=== PATIENT | male | born 1950 | race Caucasian/White ===

== ENCOUNTER 2017-07-07 00:57 | Inpatient (IN) ==
[2017-07-07] MEDS ORDERED: DUONEB (A & A) ONE ×2 (01:04→04:04)
[2017-07-07] MEDS ORDERED: DUONEB (A & A) INH ONE (01:10)
[2017-07-07 01:26] LABS: BE 3.4 mmoll (-3.0-3.0); BLOOD TYPE ARTERIAL; DRAW SITE R BRACHIAL; METHB 1.3 % (0.0-1.5); O2(CT) 19.6 mL/dL (15.0-23.0); PO2(98.6) 71 mmHg (60-100); SAMPLE BLOOD; SAO2 96.3 % (95.0-100.0); pH(98.6) 7.31 (7.35-7.45)
[2017-07-07] MEDS ORDERED: SOLU-MEDROL IV ONE (01:27)
--- NOTE | 2017-07-07 01:30 | EKG Report ---
Test Performed on : 07/07/2017 01:16:00 AM Test Reason : CHEST PAIN Blood Pressure : / mmHG Vent. Rate : 100 BPM Atrial Rate : 100 BPM P-R Int : 134 ms QRS Dur : 096 ms QT Int : 346 ms P-R-T Axes : 080 033 058 degrees QTc Int : 446 ms Normal sinus rhythm. Cannot rule out Inferior infarct , age undetermined Abnormal ECG When compared with ECG of 23-APR-2017 09:37, Minimal criteria for Inferior infarct are now present Nonspecific T wave abnormality now evident in Inferior leads Unconfirmed Result
[2017-07-07 01:31] LABS: ALLEN TEST NO; MODALITY CANNULA; PCO2(98.6) 63 mmHg (35-45)
[2017-07-07 01:31] LABS: MANUAL DIFF NEEDED? NO
--- NOTE | 2017-07-07 01:33 | PROVIDER DOCUMENTATION ---
HPI-Respiratory General - General Chief Complaint: Shortness of Breath Stated Complaint: SOB Time Seen by Provider: 07/07/17 01:27 Source: patient Allergies/Adverse Reactions: Patient Allergies Allergy/AdvReac Type Severity Reaction Status Date / Time levofloxacin [From Levaquin] Allergy RASH Verified 02/22/17 20:36 Home Medications: Home Medication List Medication Instructions Recorded Confirmed Last Taken Type Albuterol Sulfate Inhaler 2 puff INH TF7AION 10/24/13 07/07/17 04/23/17 07:00 History [Ventolin Hfa] Albuterol [Albuterol Neb] 2.5 mg INH Q4H PRN PRN 10/24/13 07/07/17 04/23/17 05: 00 History Hydrocodone/APAP 10 mg/325 mg 7.5 mg PO TID 04/07/15 07/07/17 04/23/17 06:00 History [[place]-10] Pregabalin [Lyrica] 1 cap PO AC + HS 02/22/17 07/07/17 04/22/17 07:00 History Clonazepam [Clonazepam] 1 tab PO DIRECTED 04/23/17 07/07/17 04/22/17 History - History of Present Illness-Resp Nature of Presenting Problem: wheezing sob x 2 days no fever or chills no blood has productive clear cough has edema in legs 2 days Quality of Pain: reports: none Severity in ED: reports: mild Onset/Duration: reports: 2 days ago Timing: reports: still present Context: denies: recent URI Cough Quality/Degree: reports: productive cough Episode Frequency: frequent episodes Current Respiratory Medication Therapy: Initiated A/A nebulizer, Initiated prednisone Modifying Factors: improves with: albuterol inhaler, oxygen, sitting upright. worse with: exertion, coughing, lying down Associated Symptoms: reports: cough, nasal congestion, shortness of breath, short of breath. denies: fever/chills, flu-like symptoms, heart racing Similar Symptoms Previously?: Yes Recently seen or treated by another doctor?: No Review of Systems - Adult - REVIEW OF SYSTEMS - ADULT Constitutional: reports: weight gain. denies: chills, fever, night sweats Eyes: reports: no symptoms reported Ears, Nose, Mouth & Throat: reports: no symptoms reported Cardiovascular: reports: no symptoms reported, edema, orthopnea, PND Respiratory: reports: cough, shortness of breath, wheezing Gastrointestinal: reports: no symptoms reported Genitourinary: reports: no symptoms reported Musculoskeletal: reports: no symptoms reported Integumentary: reports: no symptoms reported Neurological: reports: no symptoms reported Psychiatric: reports: no symptoms reported Endocrine: reports: no symptoms reported Hematologic/Lymphatic: reports: blood clots, easy bruising. denies: low blood count, lymphedema Allergic/Immunologic: reports: no symptoms reported. denies: asthma Past History - Adult - PAST MEDICAL HISTORY-ADULT Review of Records: reports: Nursing Assessment Review, Medications Reviewed Major Childhood Illnesses: reports: denies history Cardiovascular: reports: CHF, palpitations Respiratory: reports: COPD Gastrointestinal: reports: denies history Obstetrical/Gynecological: reports: denies history Genitourinary: reports: denies history. denies: ESRD Musculoskeletal: reports: denies history Neurological: reports: denies history Psychiatric: reports: denies history Endocrine/Immune: reports: denies history Other Conditions: reports: denies history - PRIOR SURGERIES/PROCEDURES Surgical/Procedure History: reports: cholecystectomy - IMMUNIZATION STATUS Childhood Immunizations: See Nurse Assessment Flu Vaccine: See Nurse Assessment - FAMILY HISTORY Family History: reviewed, not pertinent - SOCIAL HISTORY Smoking: quit greater than 1 year Substance Use: none/never Living Situation: family Physical Exam-General - PHYSICAL EXAM-ADULT Initial Vital Signs Reviewed: Yes - CONSTITUTIONAL General Appearance: alert - RESPIRATORY Respiratory: accessory muscle use, wheezing, prolonged expiration, increased rate - CARDIOVASCULAR Cardiovascular: tachycardia - GASTROINTESTINAL (ABDOMEN) Abdominal Exam: non tender, soft, hernia - SKIN Integumentary: normal color, normal turgor, warm/dry - PSYCHIATRIC Psych/Mental Status: normal mood/affect, normal thought content, normal thought process, oriented x 3 Progress - PLAN OF CARE/RESULTS Progress/Plan/Lab Results: Vital Signs - 8 hr 07/07/17 01:00 07/07/17 01:10 07/07/17 02:20 Temperature 98.5 F 98.2 F Pulse Rate 99 H 100 H 93 H Respiratory Rate 30 H 25 H 18 Blood Pressure 175/97 157/105 O2 Sat by Pulse Oximetry 96 99 98 Laboratory Results - last 24 hr 07/07/17 07/07/17 07/07/17 01:00 01:25 01:25 WBC RBC Hgb Hct MCV MCH MCHC RDW Std Deviation Plt Count MPV Immature Gran % (Auto) Neut % (Auto) Lymph % (Auto) Martin % (Auto) Eos % (Auto) Baso % (Auto) Immature Gran # (Auto) Neut # (Auto) Lymph # (Auto) Martin # (Auto) Eos # (Auto) Baso # (Auto) PT INR APTT (Factor Assay) D-Dimer Specimen Type ARTERIAL Sample Site R BRACHIAL pH 7.31 L pCO2 63 H* pO2 71 HCO3 27.4 H Base Excess 3.4 H Oxyhemoglobin 92.9 L ABG O2 Sat (Calculated) 19.6 ABG O2 Saturation 96.3 ABG Carboxyhemoglobin 2.20 ABG Methemoglobin 1.3 Michael Test NO A-a O2 Difference 78.0 Total Hemoglobin 15.0 Lactate 0.60 Liter Flow 3.0 Blood Gas Modality CANNULA FiO2 % 32.0 Sodium 138 Potassium 4.1 Chloride 98 Carbon Dioxide 30 Anion Gap 10 BUN 9 Creatinine 0.8 Estimated GFR/1.73 m2 > 60 BUN/Creatinine Ratio 11 Glucose 222 H Calculated Osmolality 281 Calcium 9.0 Magnesium 2.2 Total Bilirubin 0.50 AST 13 ALT 15 Alkaline Phosphatase 82 Creatine Kinase 223 H Creatine Kinase Index 4.0 H CK-MB (CK-2) 9.01 H Troponin T < 0.010 Eyw-I-Bmhmkbwhrjm Pept Total Protein 7.3 Albumin 4.1 Globulin 3.0 Albumin/Globulin Ratio 1.0 07/07/17 07/07/17 07/07/17 01:25 01:25 01:25 WBC 12.63 H RBC 4.72 Hgb 14.5 Hct 45.5 MCV 96.4 MCH 30.7 MCHC 31.9 L RDW Std Deviation 12.2 Plt Count 275 MPV 10.9 H Immature Gran % (Auto) 0.3 Neut % (Auto) 63.0 Lymph % (Auto) 15.8 L Martin % (Auto) 9.9 H Eos % (Auto) 10.5 H Baso % (Auto) 0.5 Immature Gran # (Auto) 0.04 Neut # (Auto) 7.97 H Lymph # (Auto) 1.99 Martin # (Auto) 1.25 H Eos # (Auto) 1.32 H Baso # (Auto) 0.06 PT 13.1 INR 0.92 APTT (Factor Assay) 26.4 D-Dimer 0.47 Specimen Type Sample Site pH pCO2 pO2 HCO3 Base Excess Oxyhemoglobin ABG O2 Sat (Calculated) ABG O2 Saturation ABG Carboxyhemoglobin ABG Methemoglobin Michael Test A-a O2 Difference Total Hemoglobin Lactate Liter Flow Blood Gas Modality FiO2 % Sodium Potassium Chloride Carbon Dioxide Anion Gap BUN Creatinine Estimated GFR/1.73 m2 BUN/Creatinine Ratio Glucose Calculated Osmolality Calcium Magnesium Total Bilirubin AST ALT Alkaline Phosphatase Creatine Kinase Creatine Kinase Index CK-MB (CK-2) Troponin T Xlb-B-Gidfqnzaxnl Pept 232 H Total Protein Albumin Globulin Albumin/Globulin Ratio Orders Category Date Time Status Cardiac Monitoring DIRECTED Care 07/07/17 01:07 Active Oxygen Therapy- ED Nursing DIRECTED Care 07/07/17 01:07 Active Saline Loc NOW Care 07/07/17 01:07 Active CHEST-2 VIEWS [RAD] Stat Exams 07/07/17 01:11 Taken ABG [RESP] Routine Lab 07/07/17 01:00 Completed CBC WITH ELECTRONIC DIFF [HEME] Stat Lab 07/07/17 01:25 Completed CK PROFILE [SP CHEM] Stat Lab 07/07/17 01:25 Results COMPREHENSIVE METABOLIC PANEL [CHEM] Stat Lab 07/07/17 01:25 Results D-DIMER PL [COAG] Stat Lab 07/07/17 01:25 Completed MAGNESIUM [CHEM] Stat Lab 07/07/17 01:25 Results PRO B-NATRIURETIC PEPTIDE Stat Lab 07/07/17 01:[address]IME WITH INR PL [COAG] Stat Lab 07/07/17 01:[address] [COAG] Stat Lab 07/07/17 01:25 Completed TROPONIN T Stat Lab 07/07/17 01:25 Completed Albuterol 2.5MG/Ipratrop 0.5MG [Duoneb (A & A)] Med 07/07/17 01:04 Discontinued 3 ml .ROUTE .STK-MED ONE Albuterol 2.5MG/Ipratrop 0.5MG [Duoneb (A & A)] Med 07/07/17 01:10 Discontinued 3 ml INH NOW ONE Methylprednisolone Sod Succ [Solu-Medrol] Med 07/07/17 01:27 Discontinued 125 mg IV NOW ONE breathing treatment [Aerosol Treatments] Stat Oth 07/07/17 01:10 Active EKG [EKG] Stat Ther 07/07/17 01:07 Draft Result Diagrams: 07/07/17 01:25 07/07/17 01:25 - EKG 1 Time of EKG reading by physician:: 01:16 EKG Read and Signed by:: Antonio Hair EKG Interpretation (*Must complete 3 of following elements*): Abnormal Rate: 100 Rhythm: NSR Comments: cannot r/o inferior infarct, age undetermined - XRAY 1 XRAY Study: Chest Impression: Abnormal Comparison with other Films: no changes - CONSULTS/PCP/HOSPITALIST Notification #1 *Consult/PCP/Hospitalist*: Dr. Weber Time Discussed: 02:33 Consult Disposition: Admit Departure - Departure Date of Disposition Decision: 07/07/17 Time of Disposition Decision: 02:33 DIAGNOSIS: COPD exacerbation Disposition: ADMITTED INPATIENT 09 Certified Medical Emergency: Emergent Condition: Stable Referrals and Follow-Ups: Tony Mckinney MD [Primary Care Provider] - - Critical Care Note This patient required my direct & personal management of CC.: No Attestation - Physician/ REEMA Attestation Patient care was provided by Advanced Practice Provider:: No The physician spent face to face time with patient:: Yes Advanced Practice Provider documentation review:: Supervising physician onsite and consulted in the evaluation and care of this patient. The physician did have a face to face encounter with the patient.
[2017-07-07 01:37] LABS: BASO% 0.5 % (0.0-0.8); EOS# 1.32 X1000 (0.0-0.7); EOS% 10.5 % (0.0-10.0); HEMATOCRIT 45.5 % (42.0-52.0); HEMOGLOBIN 14.5 g/dL (14.0-18.0); IMM GRAN# 0.04 X1000 (0.0-0.04); IMM GRAN% 0.3 % (0.0-0.5); LYMPH# 1.99 X1000 (1.2-3.4); LYMPH% 15.8 % (20.5-51.1); MCH 30.7 PG (27-31); MCHC 31.9 g/dL (33-37); MCV 96.4 FL (81-99); MONO# 1.25 X1000 (0.11-0.59); MONO% 9.9 % (1.7-9.3); MPV 10.9 FL (7.4-10.4); PLT 275 X1000 (130-400); RBC 4.72 XMIL (4.7-6.1)
[2017-07-07 01:55] LABS: AGAP 10; ALBUMIN 4.1 g/dL (3.5-5.0); ALKALINE PHOSPHATASE 82 U/L (32-122); BUN 9 mg/dL (8-22); CHLORIDE 98 mmol/L (98-107); COSMO 281; GOT 13 U/L (10-34); GPT 15 U/L (10-44); MAGNESIUM 2.2 mg/dL (1.5-2.7); POTASSIUM 4.1 mmol/L (3.5-5.1); SODIUM 138 mmol/L (136-145); TCO2 30 mmol/L (25-35); TOTAL PROTEIN 7.3 g/dL (6.3-8.3)
[2017-07-07 01:59] LABS: INR 0.92 (0.86-1.15); PROTIME 13.1 Seconds (12.1-15.5); PTT PL 26.4 Seconds (22.6-43.9)
[2017-07-07 02:01] LABS: CK PROFILE 223 U/L (24-204)
[2017-07-07 02:21] LABS: CK-MB 9.01 ng/mL (0.0-5.0)
[2017-07-07] MEDS ORDERED: LASIX PO ONE (03:03)
[2017-07-07] MEDS ORDERED: DOXYCYCLINE 100 MG in NS 250 ML IV SCH (04:00)
[2017-07-07] MEDS: ROCEPHIN 1 GM in NS 50 ML IV SCH (04:00)
[2017-07-07] MEDS: PROTONIX PO SCH (06:15)
[2017-07-07] MEDS: LOVENOX SUBQ SCH (06:15)
--- NOTE | 2017-07-07 06:16 | Diag Imaging Result Doc PS360 ---
EXAM: CHEST-2 VIEWS HISTORY: shortness of breath TECHNIQUE: Two views COMPARISON: 04/23/2017 FINDINGS: The lungs are hyper expanded. The heart is not enlarged. The vessels are not distended. There are questionable infiltrates laterally in the mid left lung and medially in the right base. No pleural effusions. There are several old rib fractures. IMPRESSION: 1.Emphysema 2.I believe there are small infiltrates. Electronically signed by David Redding 07/07/2017 6:13 AM
[2017-07-07] MEDS: DUONEB (A & A) INH PRN ×4 (07:18→18:36)
[2017-07-07] MEDS: SOLU-MEDROL IV SCH ×3 (09:32→22:52)
[2017-07-07] MEDS ORDERED: LOVENOX SUBQ SCH (16:30)
--- NOTE | 2017-07-07 16:48 | HISTORY AND PHYSICAL ---
HISTORY OF PRESENT ILLNESS: Patient came in with shortness of breath and cough. PHYSICAL EXAM: CARDIOVASCULAR: Regular rate and rhythm. PULMONARY: Diffuse rhonchi and wheezing. PROBLEM LIST: He has chronic obstructive pulmonary disease exacerbation with possibly some pneumonia. We will continue empiric antibiotics, steroids, breathing treatments and follow. I am going to repeat his chest x-ray tomorrow. DVT, GI prophylaxis. At this point it is not is not clear he has heart failure but we will monitor that. His BNP is moderately elevated. He does have hyperglycemia though and we will evaluate for diabetes. cc: Angel Guardado MD
[2017-07-07] MEDS: DOXYCYCLINE PO SCH (17:03)
[2017-07-07] MEDS ORDERED: SOLU-MEDROL IV SCH (18:00)
--- NOTE | 2017-07-07 18:19 | HISTORY AND PHYSICAL ---
CHIEF COMPLAINT: Increasing dyspnea over 1 week. HISTORY OF PRESENT ILLNESS: This is a 66-year-old gentleman with a history of COPD, who presented to the emergency room complaining of progressive dyspnea on exertion over the prior week. He denied any fever or chill with a clear cough. He did say that he has had some lower extremity edema during this time. He did deny any fever or chills. He was found to have a white count of 12 with a pCO2 of 63 and a PO2 of 71 on blood gases. Chest x-ray did show some small infiltrates in the mid left lung as well as the right base. Blood cultures were done for which he was given Rocephin and admitted for further evaluation and treatment. PAST MEDICAL HISTORY: CHF, COPD, gastroesophageal reflux disease, obstructive sleep apnea. PAST SURGICAL HISTORY: Cholecystectomy. SOCIAL HISTORY: He stopped smoking a year ago. He denies alcohol or illicit drug use. FAMILY HISTORY: Sister had lung cancer. Mother had heart failure. ALLERGIES: No known drug allergies. HOME MEDICATIONS: Klonopin 1 tablet as directed, albuterol nebulizer q. 4 hours p.r.n., Lyrica as directed. REVIEW OF SYSTEMS: A 14 point review of systems is discussed with patient with pertinent positives stated in the HPI. He denied chest pain, palpitations, dizziness, orthopnea, PND, any nausea, vomiting, diarrhea, constipation, any black or bloody vomitus, black or bloody stools, hematuria, dysuria, frequency or urgency. PHYSICAL EXAMINATION: GENERAL: This is a 66-year-old male who is sitting up in the bed, in no distress. VITAL SIGNS: Blood pressure 156/90 with a heart rate of 100, respirations are 18, temperature is 97.9 degrees oral with O2 saturations of 95-96% on 3 L nasal cannula. HEENT: Head is normocephalic, atraumatic. Pupils equal, round, react to light. EOMs are intact. Sclerae anicteric. Mucous membranes are moist. NECK: Supple. Trachea midline. CARDIOVASCULAR: Regular rate and rhythm S1, S2 appreciated. PULMONARY: Scattered wheezes throughout with prolonged expiration. Chest rises and falls symmetrically with respiration with no increased work of breathing noted.Gastrointestinal: Abdomen is soft, nontender, nondistended with bowel sounds in all 4 quadrants. Back: No CVAT. No spine tenderness. Musculoskeletal: Good range of motion of joints. Extremities: No clubbing, cyanosis, or edema. Pulses are palpable x 4. Calves are nontender. Skin: Warm and dry with no rashes or lesions noted. Neurologic: He is alert and oriented x 3. Cranial nerves 2- 12 grossly intact. DIAGNOSTICS: WBC is 12.6 with a hemoglobin of 14.5, hematocrit 45.5, and platelets of 275,000. D- dimer 0.47. Sodium is 138, potassium 4.1, BUN 9, creatinine 0.8, glucose of 222. CPK is 223, with CK-MB 9. Troponin less than 0.010. Chest x-ray reveals bilateral infiltrates. ASSESSMENT AND PLAN: 1. Chronic obstructive pulmonary disease with acute exacerbation. 2. Multilobar pneumonia. 3. Leukocytosis. 4. Hypercapnic respiratory failure. 5. Hypertension. 6. Reported heart failure. 7. Obstructive sleep apnea. PLAN: He will be admitted to the hospital. We will continue with antibiotic coverage of Rocephin and doxycycline. Steroids to taper. We will identify home medications and continue as appropriate. We will give DuoNeb q. 4 hours and q. 2 hours p.r.n. Fingerstick blood sugars with pattern blood glucose and sliding scale insulin. We will repeat a chest x-ray in the morning. We will trend labs daily. We will use Lovenox for DVT prophylaxis. Incentive spirometer. Further treatments pending hospital course. Dictated by YUNIOR Dixon for Angel Guardado MD cc: YUNIOR Dixon MD
[2017-07-07] MEDS: HUMULIN R (PARKWAY) SUBQ SCH ×2 (18:25→20:58)
[2017-07-07] MEDS: PULMICORT INH SCH (19:33)
[2017-07-07] MEDS: DUONEB (A & A) INH SCH ×2 (19:33→23:44)
[2017-07-08] MEDS: DUONEB (A & A) INH SCH ×6 (03:48→22:57)
[2017-07-08] MEDS: SOLU-MEDROL IV SCH ×3 (04:07→20:10)
[2017-07-08] MEDS: ROCEPHIN 1 GM in NS 50 ML IV SCH (04:07)
[2017-07-08] MEDS: LOVENOX SUBQ SCH (06:05)
[2017-07-08] MEDS: DOXYCYCLINE PO SCH ×2 (06:05→17:53)
[2017-07-08] MEDS: PROTONIX PO SCH (06:05)
[2017-07-08] MEDS: HUMULIN R (PARKWAY) SUBQ SCH ×2 (06:05→11:57)
[2017-07-08 06:24] LABS: HEMATOCRIT 44.2 % (42.0-52.0); HEMOGLOBIN 14.5 g/dL (14.0-18.0); MCHC 32.8 g/dL (33-37); MCV 94.4 FL (81-99); MPV 11.5 FL (7.4-10.4); RBC 4.68 XMIL (4.7-6.1)
[2017-07-08 07:08] LABS: AGAP 14; BUN 20 mg/dL (8-22); CALCIUM 9.7 mg/dL (8.8-10.2); CHLORIDE 94 mmol/L (98-107); COSMO 285; MAGNESIUM 2.2 mg/dL (1.5-2.7); POTASSIUM 4.1 mmol/L (3.5-5.1); SODIUM 136 mmol/L (136-145); TCO2 28 mmol/L (25-35)
--- NOTE | 2017-07-08 07:33 | Diag Imaging Result Doc PS360 ---
EXAM: CHEST-PORTABLE HISTORY: dyspnea TECHNIQUE: Portable AP COMPARISON: 07/07/2017 FINDINGS: The lungs are well expanded. The heart is not enlarged. The vessels are not distended. No consolidation. No pleural effusions identified. There are old rib fractures. IMPRESSION: No acute abnormality. Electronically signed by David Redding 07/08/2017 7:30 AM
[2017-07-08] MEDS ORDERED: CARDIZEM IV ONE (08:12)
--- NOTE | 2017-07-08 08:24 | EKG Report ---
Test Performed on : 07/08/2017 08:00:11 AM Test Reason : Tachy Blood Pressure : / mmHG Vent. Rate : 165 BPM Atrial Rate : 057 BPM P-R Int : 000 ms QRS Dur : 088 ms QT Int : 288 ms P-R-T Axes : 000 009 187 degrees QTc Int : [address] depression, consider subendocardial injury Nonspecific T wave abnormality Abnormal ECG When compared with ECG of 07-JUL-2017 01:16, Vent. rate has increased BY 65 BPM Minimal criteria for Inferior infarct are no longer present ST more depressed in Anterolateral leads Nonspecific T wave abnormality, improved in Inferior leads Inverted T waves have replaced nonspecific T wave abnormality in Lateral leads Unconfirmed Result
[2017-07-08] MEDS: PULMICORT INH SCH ×2 (09:18→20:25)
[2017-07-08] MEDS: KLONOPIN PO SCH ×2 (09:37→20:10)
[2017-07-08 09:48] LABS: HEMOGLOBIN A1C 8.6 % (4.8-6.0)
[2017-07-08] MEDS: HUMULIN R DOSE (PARKWAY) SUBQ SCH ×2 (16:00→20:11)
--- NOTE | 2017-07-08 20:53 | PROGRESS NOTE ---
DATE: 07/08/2017 SUBJECTIVE: Patient sitting in the bed. States that he is feeling better. He is having some shortness of breath, cough and congestion, but denies any true chest pains or palpitations. Denies any GI or issues. OBJECTIVE: Vital Signs: Reviewed and stable. Temperature 97.9 degrees, pulse 100, respiratory 130/74. General: Patient is awake, alert. He is in moderate respiratory distress, but is improved from yesterday's admission. HEENT: Normocephalic, atraumatic. NEIL. Neck: Supple. No JVD. CARDIOVASCULAR: Regular rate and rhythm. Chest: Decreased breath sounds, but equal bilaterally. Mild accessory muscle usage bilaterally. Positive moderate wheezing bilaterally. Abdomen: Soft, nondistended. Extremities: Moves all extremities. ASSESSMENT: 1. Chronic obstructive pulmonary disease with exacerbation. 2. Chronic hypoxemia. 3. Chronic tobacco abuse. Notes he stopped smoking greater than a year ago. 4. Hypertension. 5. Hypercapnic respiratory failure. 6. Leukocytosis. 7. Multilobar pneumonia. PLAN: We will continue Rocephin and doxycycline. We will change doxycycline to p.o. We will attempt to decrease his Solu-Medrol from 80 q. 6 to 60 q.8. We will follow. Further orders as needed. cc: Wade Weber MD
[2017-07-09] MEDS: SOLU-MEDROL IV SCH ×2 (03:55→16:36)
[2017-07-09] MEDS: ROCEPHIN 1 GM in NS 50 ML IV SCH (03:56)
[2017-07-09] MEDS: DUONEB (A & A) INH SCH ×6 (04:15→22:33)
[2017-07-09] MEDS: DOXYCYCLINE PO SCH ×2 (06:12→17:07)
[2017-07-09] MEDS: PROTONIX PO SCH (06:12)
[2017-07-09] MEDS: LOVENOX SUBQ SCH (06:12)
[2017-07-09] MEDS: HUMULIN R DOSE (PARKWAY) SUBQ SCH ×4 (06:18→20:42)
[2017-07-09] MEDS: PULMICORT INH SCH ×2 (07:46→18:44)
[2017-07-09] MEDS: KLONOPIN PO SCH ×2 (08:15→20:42)
[2017-07-09] MEDS: COREG PO SCH ×2 (09:18→20:42)
[2017-07-09] MEDS ORDERED: SOLU-MEDROL IV SCH (12:00)
[2017-07-09] MEDS ORDERED: PRINIVIL PO SCH (13:30)
[2017-07-09] MEDS: DUONEB (A & A) INH PRN (13:53)
[2017-07-09] MEDS: NORCO-7.5 PO PRN (17:07)
[2017-07-09] MEDS ORDERED: APRESOLINE IV PRN (20:14)
[2017-07-09] MEDS: LYRICA PO SCH (20:42)
[2017-07-10] MEDS: DUONEB (A & A) INH SCH ×6 (02:57→22:42)
--- NOTE | 2017-07-10 05:46 | PROGRESS NOTE ---
DATE: 07/09/2017 SUBJECTIVE: Patient denies any cough, congestion. Denies any chest pain. States that occasionally when he gets overly anxious he will just start vomiting . PHYSICAL EXAMINATION: Vital signs: Temp 97.1, pulse 108, respiratory 20, BP 130/74. General: Patient is awake, alert, currently in no respiratory distress. HEENT: Normocephalic, atraumatic. NEIL. Neck: Supple. Cardiovascular: Regular rate. Chest: Clear. Abdomen: Soft. Extremities: Moves all extremities. ASSESSMENT: 1. Supraventricular tachycardia. He has had no further episodes today. We will continue to watch him through the afternoon. If has no further episodes then we can discharge him back to the floor. 2. Hypertension. We will add an STEPHIE inhibitor as he is already on Coreg 6.. 3. cc: Wade Weber MD
--- NOTE | 2017-07-10 05:57 | HISTORY AND PHYSICAL ---
ADDENDUM REPORT: ASSESSMENT: 1. Chronic obstructive pulmonary disease exacerbation. 2. Supraventricular tachycardia. PLAN: We will continue Coreg. We will add STEPHIE inhibitor for hypertension. Continue breathing treatments. We will continue to watch in the ICU most of the day today. Hopefully can be transitioned out to the floor tonight if a bed is available. cc: Wade Weber MD
[2017-07-10] MEDS: SOLU-MEDROL IV SCH ×2 (06:09→17:14)
[2017-07-10] MEDS: PROTONIX PO SCH (06:09)
[2017-07-10] MEDS: ROCEPHIN 1 GM in NS 50 ML IV SCH (06:09)
[2017-07-10] MEDS: DOXYCYCLINE PO SCH ×2 (06:09→17:14)
[2017-07-10] MEDS: LOVENOX SUBQ SCH (06:09)
[2017-07-10] MEDS: HUMULIN R DOSE (PARKWAY) SUBQ SCH (06:10)
[2017-07-10] MEDS: NORCO-7.5 PO PRN ×2 (06:12→20:40)
[2017-07-10] MEDS: PULMICORT INH SCH ×2 (07:55→19:14)
[2017-07-10] MEDS: LYRICA PO SCH ×2 (08:47→20:37)
[2017-07-10] MEDS: COREG PO SCH ×2 (08:47→20:36)
[2017-07-10] MEDS: KLONOPIN PO SCH ×2 (08:47→20:36)
[2017-07-10] MEDS: PRINIVIL PO SCH (08:47)
[2017-07-10] MEDS: HUMULIN R (PARKWAY) SUBQ SCH ×3 (11:39→20:37)
--- NOTE | 2017-07-10 22:20 | PROGRESS NOTE ---
DATE: 07/10/2017 SUBJECTIVE: Patient notes he is feeling much better. States he had episode of cough and congestion yesterday felt short of breath, could not catch his breath in fact his O2 saturation dropped and his blood pressure went up, that is the reason he did not leave the ICU. Denies any GI or issues currently. OBJECTIVE: Vital Signs: Reviewed. Temperature 97 degrees, pulse 100, blood pressure 130/70. General: Patient is awake, alert. He is currently in no respiratory distress, he is pleasant to talk with. Neck: Supple. CV: Regular rate. Chest: Much more clear. Still wheezing but improved. Good air movement. Abdomen: Soft, nondistended. Extremities: Moves all extremities. Neuro: No changes. ASSESSMENT: 1. Chronic obstructive pulmonary disease with marked exacerbation. 2. Acute hypoxemia yesterday likely secondary to mucous plugging. 3. Multilobar pneumonia. 4. Leukocytosis. 5. Hypercapnic respiratory failure. 6. Hypertension. PLAN: Will continue to follow, his blood pressures are much better with Coreg and the additional increased dose of lisinopril, will continue antibiotics, continue wean his steroids. Will move him out to the floor, continue sliding scale insulin. Further orders as needed. cc: Wade Weber MD
[2017-07-11] MEDS: DUONEB (A & A) INH SCH ×3 (02:52→11:14)
[2017-07-11] MEDS: LOVENOX SUBQ SCH (05:59)
[2017-07-11] MEDS: DOXYCYCLINE PO SCH (05:59)
[2017-07-11] MEDS: SOLU-MEDROL IV SCH (05:59)
[2017-07-11] MEDS: ROCEPHIN 1 GM in NS 50 ML IV SCH (05:59)
[2017-07-11] MEDS: PROTONIX PO SCH (06:05)
[2017-07-11] MEDS: HUMULIN R (PARKWAY) SUBQ SCH ×2 (06:28→11:28)
[2017-07-11] MEDS: PULMICORT INH SCH (08:04)
[2017-07-11] MEDS: LYRICA PO SCH (09:16)
[2017-07-11] MEDS: COREG PO SCH (09:16)
[2017-07-11] MEDS: PRINIVIL PO SCH (09:16)
[2017-07-11] MEDS: KLONOPIN PO SCH (09:16)
[2017-07-11] MEDS: NORCO-7.5 PO PRN (09:21)
[2017-07-11] MEDS ORDERED: FLUZONE QUAD 2017-2018 SYRINGE IM ONE (09:36)
[2017-07-11] MEDS ORDERED: PRINIVIL PO SCH (10:46)
[2017-07-11 11:59] VITALS: BP 160/93
--- NOTE | 2017-07-12 04:35 | DISCHARGE SUMMARY ---
ADMISSION DATE: 07/07/2017 DISCHARGE DATE: 07/11/2017 DISCHARGE DIAGNOSES: 1. Supraventricular tachycardia secondary to chronic obstructive pulmonary disease exacerbation, resolved. 2. Hypertension, improved. 3. Chronic obstructive pulmonary disease with acute exacerbation, improved. 4. Multilobar pneumonia. 5. Leukocytosis, resolved. 6. Hypercapnic respiratory failure, resolved. 7. Obstructive sleep apnea. CONSULTATIONS: None. PROCEDURES: None. BRIEF HOSPITAL COURSE: The patient is a 66-year-old male who was admitted as noted on the HPI and treated in usual fashion. Placed in the hospital on IV fluids, antibiotics, breathing treatments, and steroids. He was improving and then had an episode of supraventricular tachycardia. Heart rate jumped in the 130s to 140s. He was placed on Cardizem IV x1. Moved to the ICU. Thankfully, this resolved quickly. He was transitioned over to Coreg 6.25 twice a day. He was noted to have elevated blood pressures in the 160s to 170s range. He was not on any blood pressure medications at home. He was started on lisinopril and slowly increased to 40 mg once a day. On discharge, he has been transition down to Solu-Medrol 40 q.12, which he tolerated very well. He has been changed to Omnicef and doxycycline both p.o. and therefore he will be discharged home. DISPOSITION: Patient will be discharged home. He will continue to avoid cigarette smoke personally, as well as anyone else that smokes. He will avoid any type of current strong odors. He will followup with Dr. Tony Mckinney in 1-2 weeks. DISCHARGE MEDICATIONS: Doxycycline 100 mg twice a day for five days, Omnicef 300 mg twice a day for five days, Medrol Dosepak, next Coreg 6.25 b.i.d., lisinopril 40 mg once a day,nebulized albuterol q. 4 hours p.r.n. TIME SPENT: Thirty-five minutes was spent in total care. cc: Wade Weber MD
== END 2017-07-11 13:05 | disposition home or self-care (01) ==
LOC: P.ED 00:57 → P.MEDSURG 00:57 → SUATTDRO 03:10 → OBSVTOIN 03:10 → P.MEDSURG 03:26 → P.ICU 07-08 08:58 → P.MEDSURG 07-10 10:32
PROVIDERS: ATTEND Family Medicine

== ENCOUNTER 2019-01-11 14:51 | Inpatient (IN) ==
[2019-01-11 15:18] LABS: BE 6.1 mmoll (-3.0-3.0); BLOOD TYPE ARTERIAL; HCO3-(ACT) 29.6 mmoll (20.0-26.0); O2(CT) 17.9 mL/dL (15.0-23.0); O2HB 94.2 % (95.0-99.0); PCO2(98.6) 46 mmHg (35-45); PO2(98.6) 72 mmHg (60-100); SAMPLE BLOOD; SAO2 97.2 % (95.0-100.0); THB 13.5 g/dL (11.5-17.4); pH(98.6) 7.44 (7.35-7.45)
[2019-01-11 15:21] LABS: ALLEN TEST YES; MODALITY CANNULA
[2019-01-11] MEDS ORDERED: DUONEB (A & A) INH ONE (15:58)
[2019-01-11] MEDS ORDERED: SOLU-MEDROL IV ONE (15:59)
--- NOTE | 2019-01-11 16:03 | Diag Imaging Result Doc PS360 ---
EXAM: CHEST-2 VIEWS HISTORY: copd sob TECHNIQUE: Chest two views COMPARISON: 11/01/2018 FINDINGS: The lungs are hyperexpanded. The heart is not enlarged. The vessels are small. There are no infiltrates. No pleural effusions. IMPRESSION: Emphysema Electronically signed by David Redding 01/11/2019 4:00 PM
[2019-01-11 16:16] LABS: AGAP 12; ALBUMIN 4.3 g/dL (3.5-5.0); ALKALINE PHOSPHATASE 68 U/L (32-122); BUN 17 mg/dL (8-22); CALCIUM 9.2 mg/dL (8.8-10.2); CHLORIDE 91 mmol/L (98-107); COSMO 267; CREATININE 1.1 mg/dL (0.7-1.2); ESTIMATED GFR > 60; GLUCOSE 110 mg/dL (70-104); GOT 15 U/L (10-34); GPT 13 U/L (10-44); MAGNESIUM 1.8 mg/dL (1.5-2.7); POTASSIUM 3.9 mmol/L (3.5-5.1); SODIUM 132 mmol/L (136-145); TCO2 30 mmol/L (25-35); TOTAL PROTEIN 7.7 g/dL (6.3-8.3)
[2019-01-11 16:24] LABS: INR 0.95; PROTIME 13.2 Seconds (11.0-16.0)
[2019-01-11 16:26] LABS: BASO# 0.06 X1000 (0.0-0.2); BASO% 0.6 % (0.0-0.8); EOS# 0.28 X1000 (0.0-0.7); HEMATOCRIT 37.8 % (42.0-52.0); HEMOGLOBIN 12.8 g/dL (14.0-18.0); IMM GRAN# 0.04 X1000 (0.0-0.04); IMM GRAN% 0.4 % (0.0-0.5); LYMPH# 1.65 X1000 (1.2-3.4); LYMPH% 17.4 % (20.5-51.1); MCH 31.7 PG (27-31); MCHC 33.9 g/dL (33-37); MCV 93.6 FL (81-99); MONO# 1.86 X1000 (0.11-0.59); MONO% 19.7 % (1.7-9.3); MPV 10.2 FL (7.4-10.4); NEUT# 5.57 X1000 (1.4-6.5); NEUT% 58.9 % (42.2-75.2); PLT 277 X1000 (130-400); RBC 4.04 XMIL (4.7-6.1); RDW 12.6 % (11.5-14.5); WBC 9.46 X1000 (4.8-10.8)
--- NOTE | 2019-01-11 17:53 | EKG Report ---
Test Performed on : 01/11/2019 3:25:22 PM Test Reason : sob copd chest pressure Blood Pressure : / mmHG Vent. Rate : 078 BPM Atrial Rate : 078 BPM P-R Int : 166 ms QRS Dur : 092 ms QT Int : 414 ms P-R-T Axes : 075 026 074 degrees QTc Int : 471 ms Sinus rhythm. with occasional premature ventricular complexes. Nonspecific T wave abnormality Abnormal ECG When compared with ECG of 29-OCT-2018 11:36, No significant change was found Unconfirmed Result
--- NOTE | 2019-01-11 18:29 | PROVIDER DOCUMENTATION ---
This chart was entered by Tamiko Fischer Scribe, acting as scribe for Nikita Meneses MD. HPI-Respiratory General - General Chief Complaint: Shortness of Breath Stated Complaint: SOB Time Seen by Provider: 01/11/19 15:07 Source: patient Allergies/Adverse Reactions: Patient Allergies Allergy/AdvReac Type Severity Reaction Status Date / Time levofloxacin [From Levaquin] Allergy RASH Verified 10/28/18 19:14 Sulfa (Sulfonamide AdvReac Severe SHORTNESS Verified 10/28/18 19:14 Antibiotics) OF BREATH Home Medications: Home Medication List Medication Instructions Recorded Confirmed Last Taken Type Albuterol Sulfate Inhaler 2 puff INH Q4-6H PRN PRN 10/24/13 10/28/18 10/28/18 History [Ventolin Hfa] Chlorthalidone [Hygroton] 25 mg PO DAILY #90 tab 11/23/17 10/28/18 10/28/18 Rx Amlodipine [Norvasc] 5 mg PO DAILY 01/03/18 10/28/18 10/28/18 History Carvedilol [Coreg] 3.125 mg PO BID 01/03/18 10/28/18 10/28/18 History Hydrocodone Bit/Acetaminophen 1 each PO TID@0900,1500,2100 PRN 01/03/18 10/28/18 Unknown History [Hydrocodon-Acetaminoph 7.5-325] Ipratropium/Albuterol Sulfate 3 ml IH 4XDAY PRN 01/03/18 10/28/18 Unknown History [Iprat-Albut 0.5-3(2.5) mg/3 ml] LISINOpril [Prinivil] 20 mg PO DAILY 01/03/18 10/28/18 10/28/18 History Pregabalin [Lyrica] 75 mg PO BID 01/03/18 10/28/18 10/28/18 History Furosemide [Lasix] 20 mg PO DAILY PRN PRN 02/20/18 10/28/18 Unknown History Esomeprazole Magnesium [Nexium] 40 mg PO DAILY@0700 07/21/18 10/28/18 Unknown History Budesonide/Formoterol Inhaler 2 puff INH RTBID #1 inhaler 07/27/18 10/28/18 10/28/18 Rx [Symbicort 160/4.5 Microgm Inhaler] Amoxicillin/Potassium Clav 1 ea PO Q12H #14 tab 11/04/18 Unknown Rx [Augmentin 875-125 Tablet] Metformin [Glucophage] 850 mg PO BID CC tablet 11/04/18 Unknown Rx Prednisone See Taper PO DAILY #30 tab 11/04/18 Unknown Rx - History of Present Illness-Resp Nature of Presenting Problem: 68 yom presents to ED c/o SOB and chest pressure that started after washing car 2 days ago but has progressively gotten worse. Pt states he is on 2lt of o2 at home but hasn't used it like he should. Pt has hx of COPD, CHF and DM. Pt denies nausea, vomiting or diarrhea. Quality of Pain: reports: pressure Severity in ED: reports: mild Onset/Duration: reports: 24 hours ago Timing: reports: still present, changing over time Cough Quality/Degree: reports: no cough Current Respiratory Medication Therapy: Initiated A/A nebulizer Modifying Factors: improves with: albuterol nebulizer, oxygen. worse with: lying down Associated Symptoms: reports: shortness of breath Review of Systems - Adult - REVIEW OF SYSTEMS - ADULT Constitutional: reports: see HPI, fatique. denies: chills, fever Eyes: reports: no symptoms reported Ears, Nose, Mouth & Throat: reports: no symptoms reported Cardiovascular: reports: see HPI, edema (lower legs, bilaterally), orthopnea, other (chest pressure) Respiratory: reports: see HPI, shortness of breath. denies: wheezing Gastrointestinal: reports: no symptoms reported Genitourinary: reports: no symptoms reported Musculoskeletal: reports: no symptoms reported Integumentary: reports: no symptoms reported Neurological: reports: no symptoms reported Psychiatric: reports: no symptoms reported Endocrine: reports: no symptoms reported Hematologic/Lymphatic: reports: no symptoms reported Allergic/Immunologic: reports: no symptoms reported All Other Systems: Reviewed and Negative Past History - Adult - PAST MEDICAL HISTORY-ADULT Review of Records: reports: Nursing Assessment Review, Medications Reviewed, Social history reviewed & non-contributory. Major Childhood Illnesses: reports: denies history Cardiovascular: reports: CHF, HTN, palpitations Respiratory: reports: COPD Gastrointestinal: reports: denies history Obstetrical/Gynecological: reports: denies history Genitourinary: denies: ESRD Musculoskeletal: reports: denies history Neurological: reports: denies history Psychiatric: reports: denies history Endocrine/Immune: reports: Diabetes Other Conditions: reports: denies history - PRIOR SURGERIES/PROCEDURES Surgical/Procedure History: reports: reviewed, not pertinent, cholecystectomy - IMMUNIZATION STATUS Childhood Immunizations: See Nurse Assessment Flu Vaccine: See Nurse Assessment - FAMILY HISTORY Family History: reviewed, not pertinent - SOCIAL HISTORY Smoking: denies Physical Exam-General - PHYSICAL EXAM-ADULT Initial Vital Signs Reviewed: Yes - CONSTITUTIONAL General Appearance: appears well, alert. negative: combative - EYES Eyes: PERRL/EOMI, pink conjunctivae. negative: photophobia - HEAD, EARS, NOSE, MOUTH & THROAT HENMT: moist mucous membranes, normal ENT inspection. negative: angioedema - NECK Neck: non-tender, full range of motion, supple, normal inspection. negative: Brudzinski's sign, carotid bruit - RESPIRATORY Respiratory: chest non-tender, decreased breath sounds (left). negative: rales, rhonchi, wheezing - CARDIOVASCULAR Cardiovascular: normal peripheral pulses, regular rate, rhythm, no gallop, no JVD, no murmur. negative: no edema, bradycardia, tachycardia - GASTROINTESTINAL (ABDOMEN) Abdominal Exam: normal bowel sounds, non tender, soft, hernia (umbilica). negative: rigid, rebound - LYMPHATIC Lymphatic: no adenopathy. negative: striations - MUSCULOSKELETAL Back Exam: normal inspection. negative: swelling Extremity: normal range of motion, swelling (1+ edema lower legs, bilaterally) - SKIN Integumentary: normal color, normal turgor, warm/dry. negative: diaphoresis, jaundice - PSYCHIATRIC Psych/Mental Status: normal mood/affect, normal thought content, normal thought process, oriented x 3. negative: paranoid Progress - PLAN OF CARE/RESULTS Progress/Plan/Lab Results: Vital Signs - 8 hr 01/11/19 14:55 01/11/19 16:30 01/11/19 17:42 Temperature 98 F Pulse Rate 78 76 84 Respiratory Rate 22 20 20 Blood Pressure 123/71 121/83 O2 Sat by Pulse Oximetry 95 94 L 93 L Laboratory Results - last 24 hr 01/11/19 01/11/19 01/11/19 15:04 15:30 15:30 WBC 9.46 RBC 4.04 L Hgb 12.8 L Hct 37.8 L MCV 93.6 MCH 31.7 H MCHC 33.9 RDW Std Deviation 12.6 Plt Count 277 MPV 10.2 Immature Gran % (Auto) 0.4 Neut % (Auto) 58.9 Lymph % (Auto) 17.4 L [place] % (Auto) 19.7 H Eos % (Auto) 3.0 Baso % (Auto) 0.6 Immature Gran # (Auto) 0.04 Neut # (Auto) 5.57 Lymph # (Auto) 1.65 [place] # (Auto) 1.86 H Eos # (Auto) 0.28 Baso # (Auto) 0.06 PT INR D-Dimer, Quantitative 0.69 H Specimen Type ARTERIAL Sample Site R RADIAL pH 7.44 pCO2 46 H pO2 72 HCO3 29.6 H Base Excess 6.1 H Oxyhemoglobin 94.2 L ABG O2 Sat (Calculated) 17.9 ABG O2 Saturation 97.2 ABG Carboxyhemoglobin 2.10 ABG Methemoglobin 1.0 Michael Test YES A-a O2 Difference 70.0 Total Hemoglobin 13.5 Lactate 0.70 Liter Flow 2.0 Blood Gas Modality CANNULA FiO2 % 28.0 Sodium Potassium Chloride Carbon Dioxide Anion Gap BUN Creatinine Estimated GFR/1.73 m2 BUN/Creatinine Ratio Glucose Calculated Osmolality Calcium Magnesium Total Bilirubin AST ALT Alkaline Phosphatase Creatine Kinase Troponin T [id number] Pept Total Protein Albumin Globulin Albumin/Globulin Ratio 01/11/19 01/11/19 01/11/19 15:30 15:30 15:30 WBC RBC Hgb Hct MCV MCH MCHC RDW Std Deviation Plt Count MPV Immature Gran % (Auto) Neut % (Auto) Lymph % (Auto) [place] % (Auto) Eos % (Auto) Baso % (Auto) Immature Gran # (Auto) Neut # (Auto) Lymph # (Auto) [place] # (Auto) Eos # (Auto) Baso # (Auto) PT INR D-Dimer, Quantitative Specimen Type Sample Site pH pCO2 pO2 HCO3 Base Excess Oxyhemoglobin ABG O2 Sat (Calculated) ABG O2 Saturation ABG Carboxyhemoglobin ABG Methemoglobin Michael Test A-a O2 Difference Total Hemoglobin Lactate Liter Flow Blood Gas Modality FiO2 % Sodium 132 L Potassium 3.9 Chloride 91 L Carbon Dioxide 30 Anion Gap 12 BUN 17 Creatinine 1.1 Estimated GFR/1.73 m2 > 60 BUN/Creatinine Ratio 15 Glucose 110 H Calculated Osmolality 267 Calcium 9.2 Magnesium 1.8 Total Bilirubin 0.40 AST 15 ALT 13 Alkaline Phosphatase 68 Creatine Kinase 83 Troponin T < 0.010 [id number]-[id number] Pept Total Protein 7.7 Albumin 4.3 Globulin 3.0 Albumin/Globulin Ratio 1.0 01/11/19 01/11/19 15:30 15:30 WBC RBC Hgb Hct MCV MCH MCHC RDW Std Deviation Plt Count MPV Immature Gran % (Auto) Neut % (Auto) Lymph % (Auto) [place] % (Auto) Eos % (Auto) Baso % (Auto) Immature Gran # (Auto) Neut # (Auto) Lymph # (Auto) [place] # (Auto) Eos # (Auto) Baso # (Auto) PT 13.2 INR 0.95 D-Dimer, Quantitative Specimen Type Sample Site pH pCO2 pO2 HCO3 Base Excess Oxyhemoglobin ABG O2 Sat (Calculated) ABG O2 Saturation ABG Carboxyhemoglobin ABG Methemoglobin Michael Test A-a O2 Difference Total Hemoglobin Lactate Liter Flow Blood Gas Modality FiO2 % Sodium Potassium Chloride Carbon Dioxide Anion Gap BUN Creatinine Estimated GFR/1.73 m2 BUN/Creatinine Ratio Glucose Calculated Osmolality Calcium Magnesium Total Bilirubin AST ALT Alkaline Phosphatase Creatine Kinase Troponin T Wdt-[id number]-Tqisipwxbqa Pept 92 Total Protein Albumin Globulin Albumin/Globulin Ratio Orders Category Date Time Status Nursing- Obtain EKG ONCE Care 01/11/19 15:01 Active Oxygen Therapy- ED Nursing DIRECTED Care 01/11/19 15:19 Active Saline Loc NOW Care 01/11/19 15:19 Active CHEST-2 VIEWS [RAD] Stat Exams 01/11/19 15:01 Completed ABG [RESP] Routine Lab 01/11/19 15:04 Completed CBC WITH DIFF [HEME] Stat Lab 01/11/19 15:30 Completed CK PROFILE [SP CHEM] Stat Lab 01/11/19 15:30 Completed COMPREHENSIVE METABOLIC PANEL [CHEM] Stat Lab 01/11/19 15:30 Completed D-DIMER [COAG] Stat Lab 01/11/19 15:30 Completed MAGNESIUM [CHEM] Stat Lab 01/11/19 15:30 Completed PRO B-NATRIURETIC PEPTIDE Stat Lab 01/11/19 15:30 Completed PROTIME WITH INR [COAG] Stat Lab 01/11/19 15:30 Completed TROPONIN T Stat Lab 01/11/19 15:30 Completed Albuterol 2.5MG/Ipratrop 0.5MG [Duoneb (A & A)] Med 01/11/19 15:58 Discontinued 3 ml INH NOW ONE Methylprednisolone Sod Succ [Solu-Medrol] Med 01/11/19 15:59 Discontinued 125 mg IV NOW ONE Aerosol Treatments Routine Oth 01/11/19 15:58 Completed Aerosol Treatments Stat Oth 01/11/19 15:58 Completed EKG [EKG] Stat Ther 01/11/19 15:01 Draft Result Diagrams: 01/11/19 15:30 01/11/19 15:30 - EKG 1 Time of EKG reading by physician:: 15:25 EKG Read and Signed by:: Nikita Meneses EKG Interpretation (*Must complete 3 of following elements*): Abnormal Rate: 78 Rhythm: sinus rhythm [place]: normal QRS: PVC's (occasional) ST Wave: non-specific ST changes - XRAY 1 XRAY: Bilateral XRAY Study: Chest Impression: See EMR Report (IMPRESSION: Emphysema Electronically signed by David Vahid 01/11/2019 4:00 PM) - CONSULTS/PCP/HOSPITALIST Notification #1 *Consult/PCP/Hospitalist*: Dr Guardado Time Discussed: 18:28 Consult Disposition: Will see in ED, Admit Departure - Departure Date of Disposition Decision: 01/11/19 Time of Disposition Decision: 18:28 DIAGNOSIS: COPD exacerbation Disposition: ADMITTED INPATIENT 09 Certified Medical Emergency: Emergent Condition: Fair Referrals and Follow-Ups: Tony Mckinney MD [Primary Care Provider] - - Critical Care Note This patient required my direct & personal management of CC.: No Attestation - Physician/ REEMA Attestation Patient care was provided by Advanced Practice Provider:: No The physician spent face to face time with patient:: Yes Advanced Practice Provider documentation review:: Supervising physician onsite and consulted in the evaluation and care of this patient. The physician did have a face to face encounter with the patient. This chart was documented by the indicated scribe, (Tamiko Fischer Scribe) and accurately reflects the services I performed and decisions made by me, Nikita Meneses MD, as attested by the provider's signature.
[2019-01-11] MEDS: DUONEB (A & A) INH SCH (21:48)
[2019-01-11] MEDS: DOXYCYCLINE 100 MG in NS 250 ML IV SCH (21:55)
[2019-01-11] MEDS: SOLU-MEDROL IV SCH (21:56)
[2019-01-12] MEDS: DUONEB (A & A) INH SCH ×6 (01:07→22:55)
--- NOTE | 2019-01-12 01:15 | HISTORY AND PHYSICAL ---
CHIEF COMPLAINT: Shortness of breath. HISTORY OF PRESENT ILLNESS: This is a 68-year-old white male with COPD on home oxygen continuously at 2 L, presenting with worsening shortness of breath over the last several days. He has also been noticing lower extremity edema that has progressed. His shortness of breath, chest pressure started about 2 days ago since washing his car. He is on home oxygen, chronic breathing treatments. He does report more productive cough, although sputum is still whitish, although sometimes more thickened than usual. No fevers, no chills. He does report some intermittent chest pressure, but associated with shortness of breath. Workup in the ER revealed relative hypoxia, but again, he is on 2 L and wheezing, rhonchi on exam and he was admitted for treatment and felt to have a COPD exacerbation. PAST MEDICAL HISTORY: 1. COPD. 2. CHF. 3. Diastolic heart failure. 4. Congenital absence of 1 kidney. PAST SURGICAL HISTORY: He has had cholecystectomy. SOCIAL HISTORY: Currently no tobacco. No ethanol. Lives with family. ALLERGIES: Levaquin and sulfa. HOME MEDICATIONS: He is on Coreg, [place], Lasix, Lyrica, Nexium, Norvasc, Prinivil, and Symbicort. REVIEW OF SYSTEMS: Otherwise negative times a 10 point review of systems. PHYSICAL EXAMINATION: VITAL SIGNS: Blood pressure 136/69, heart rate 97, respiratory 19, temperature 97.7 degrees, 94% on 2 L. GENERAL: Well-developed male, in no acute distress. HEENT: Head was normocephalic, atraumatic. Eyes: Equal, round, reactive to light. Extraocular movements were intact. Ear, nose, and throat: He had moist mucous membranes. NECK: Supple. CARDIOVASCULAR: Regular rate and rhythm. PULMONARY: Bilateral breath sounds clear to auscultation. He had no rhonchi. No wheezing. No rales. GASTROINTESTINAL: Soft, nontender, nondistended. Bowel sounds are positive. NEUROLOGIC: Nonfocal. MUSCULOSKELETAL: 4/5 in all 4 extremities. LABORATORY DATA: White count 9, hemoglobin and hematocrit 12 and 37, platelets 277,000. D-dimer mildly elevated. A pH 7.44, pCO2 of 46, PaO2 of 72. Sodium 132. IMAGING: Chest x-ray just showed emphysema. ASSESSMENT: A 68-year-old male with history of chronic obstructive pulmonary disease, congestive heart failure, diastolic, who presents with dyspnea and a chronic obstructive pulmonary disease exacerbation. 1. Acute chronic obstructive pulmonary disease exacerbation. Continue breathing treatments, empiric antibiotics, steroids, and we will follow clinically. He has already improved. 2. Diastolic heart failure. He is overall stabilized. He may be somewhat decompensated. His proBNP was not elevated. We will continue diuretics and follow closely. 3. Hypertension, appears to be relatively stable. Resume his medications once those have been updated. DISPOSITION: Anticipate discharge hopefully in next 1 to 2 days. cc: MD Tony Rose MD
[2019-01-12] MEDS ORDERED: LOVENOX SUBQ SCH (06:00)
[2019-01-12] MEDS: SOLU-MEDROL IV SCH ×3 (06:03→21:20)
[2019-01-12] MEDS: PRILOSEC PO SCH (06:04)
[2019-01-12] MEDS: LOVENOX SUBQ SCH (06:04)
[2019-01-12 07:26] LABS: BASO# 0.01 X1000 (0.0-0.2); BASO% 0.1 % (0.0-0.8); HEMATOCRIT 39.9 % (42.0-52.0); HEMOGLOBIN 13.6 g/dL (14.0-18.0); IMM GRAN# 0.03 X1000 (0.0-0.04); IMM GRAN% 0.4 % (0.0-0.5); LYMPH# 1.01 X1000 (1.2-3.4); MCH 31.5 PG (27-31); MCHC 34.1 g/dL (33-37); MCV 92.4 FL (81-99); MONO# 0.21 X1000 (0.11-0.59); MONO% 2.7 % (1.7-9.3); MPV 10.4 FL (7.4-10.4); NEUT% 83.8 % (42.2-75.2); PLT 299 X1000 (130-400); RBC 4.32 XMIL (4.7-6.1); RDW 12.5 % (11.5-14.5); WBC 7.76 X1000 (4.8-10.8)
[2019-01-12 07:47] LABS: AGAP 13; BUN 20 mg/dL (8-22); CALCIUM 9.3 mg/dL (8.8-10.2); CHLORIDE 95 mmol/L (98-107); COSMO 279; CREATININE 0.9 mg/dL (0.7-1.2); ESTIMATED GFR > 60; GLUCOSE 253 mg/dL (70-104); MAGNESIUM 1.9 mg/dL (1.5-2.7); POTASSIUM 3.6 mmol/L (3.5-5.1); SODIUM 134 mmol/L (136-145); TCO2 26 mmol/L (25-35)
[2019-01-12] MEDS: DOXYCYCLINE 100 MG in NS 250 ML IV SCH ×2 (10:00→21:19)
[2019-01-12] MEDS ORDERED: LASIX IV SCH (18:00)
--- NOTE | 2019-01-12 18:32 | PROGRESS NOTE ---
DATE: 01/12/2019 SUBJECTIVE: The patient has no major complaints. Overall, his breathing is better. He seems to be in good spirits. OBJECTIVE: Vital signs: Blood pressure is 136/79, heart rate of 100, respiratory rate of 16, temperature 97.4 degrees, 96% on 2 L. Cardiovascular: Regular rate and rhythm. Pulmonary: Bilateral breath sounds. No rales. No wheezes. Gastrointestinal: Soft, nontender, nondistended. Bowel sounds were positive. Extremities: He has 1+ pitting edema. LABORATORY DATA: White count 7, hemoglobin 13, hematocrit 39 platelets 299,000. Basic showed sugar had jumped up to 253. ProBNP, though, interestingly was normal. IMAGING STUDIES: Chest x-ray was clear. PROBLEM LIST: 1. Acute chronic obstructive pulmonary disease exacerbation. Breathing seems to be overall improved. I am going to wean his steroids. We will continue to follow closely. 2. Diastolic heart failure. ProBNP is normal. He does complain about lower extremity swelling, and I am going to put him on a little bit of diuretic and see how he does. 3. Hyperglycemia, likely related to steroids. It looks like he does have a history of diabetes. We will start to work on treating that. DISPOSITION: Pending clinical status. Possibly home in the next 24 hours. Continue to monitor and follow closely. cc: Angel Guardado MD
[2019-01-12] MEDS: LASIX PO SCH (21:19)
[2019-01-12] MEDS: HUMULIN R (PARKWAY) SUBQ SCH (21:20)
[2019-01-13] MEDS: DUONEB (A & A) INH PRN (04:30)
[2019-01-13] MEDS: LOVENOX SUBQ SCH (06:04)
[2019-01-13] MEDS: SOLU-MEDROL IV SCH ×2 (06:04→14:00)
[2019-01-13] MEDS: PRILOSEC PO SCH (06:04)
[2019-01-13] MEDS: HUMULIN R (PARKWAY) SUBQ SCH ×4 (06:04→20:49)
[2019-01-13] MEDS: DUONEB (A & A) INH SCH ×5 (07:41→22:32)
[2019-01-13 08:03] LABS: BASO# 0.02 X1000 (0.0-0.2); BASO% 0.1 % (0.0-0.8); HEMATOCRIT 38.6 % (42.0-52.0); HEMOGLOBIN 12.8 g/dL (14.0-18.0); IMM GRAN# 0.06 X1000 (0.0-0.04); IMM GRAN% 0.3 % (0.0-0.5); LYMPH# 1.18 X1000 (1.2-3.4); LYMPH% 6.2 % (20.5-51.1); MCH 30.9 PG (27-31); MCHC 33.2 g/dL (33-37); MCV 93.2 FL (81-99); MONO# 1.21 X1000 (0.11-0.59); MONO% 6.4 % (1.7-9.3); MPV 10.1 FL (7.4-10.4); NEUT# 16.57 X1000 (1.4-6.5); PLT 296 X1000 (130-400); RBC 4.14 XMIL (4.7-6.1); RDW 12.6 % (11.5-14.5); WBC 19.04 X1000 (4.8-10.8)
[2019-01-13 08:08] LABS: AGAP 13; BUN 19 mg/dL (8-22); CALCIUM 9.1 mg/dL (8.8-10.2); CHLORIDE 94 mmol/L (98-107); COSMO 283; CREATININE 0.9 mg/dL (0.7-1.2); ESTIMATED GFR > 60; GLUCOSE 252 mg/dL (70-104); POTASSIUM 3.2 mmol/L (3.5-5.1); SODIUM 136 mmol/L (136-145); TCO2 29 mmol/L (25-35)
[2019-01-13 08:29] LABS: HEMOGLOBIN A1C 6.8 % (4.8-6.0)
[2019-01-13] MEDS ORDERED: TYLENOL PO PRN (08:37)
[2019-01-13] MEDS: LASIX PO SCH (09:10)
[2019-01-13] MEDS: DOXYCYCLINE 100 MG in NS 250 ML IV SCH ×2 (09:11→20:49)
[2019-01-13 09:40] LABS: ANISOCYTOSIS 1+; LYMPHS 11 % (21-51); MONO 5 % (1-9); SEGS 84 % (42-75)
[2019-01-13] MEDS: COZAAR PO SCH (14:00)
[2019-01-13] MEDS ORDERED: KLOR-CON PO ONE (15:59)
[2019-01-13] MEDS ORDERED: ROCEPHIN 1 GM in NS 50 ML IV SCH (18:00)
--- NOTE | 2019-01-13 18:06 | PROGRESS NOTE ---
DATE: 01/13/2019 SUBJECTIVE: Patient has no major complaints. He is actually thinking about going home or wanting go home. OBJECTIVE: Blood pressure 136/74, heart rate 102, respiratory rate of 18, temperature 97.6 degrees, 98% on 2 L.Cardiovascular: Regular rate and rhythm. Pulmonary: Bilateral breath sounds diminished at bases. Gastrointestinal: Soft, nontender, nondistended. Bowel sounds are positive. DIAGNOSTIC STUDIES: White count, though, has jumped up to 19,000 with 84% segmented neutrophils, hemoglobin 12, hematocrit 38, platelets 296,000. Potassium is 3.2, sugar is up to 394. A1c is only 6.8. PROBLEM LIST: 1. Acute chronic obstructive pulmonary disease exacerbation. He is doing better. His lungs from my standpoint have been clear pretty much since admission so I do not think there is a lot a wheezing going on here. I am going to drop his steroids because I think the steroids are creating a leukocytosis issue that is not an active issue, but in any case, he is clinically improved. Repeat chest x-ray. He is on doxycycline. I may add Rocephin just to cover the bases a little bit since white count has gone up, but again I think this is likely neutrophilia from his intravenous steroids. 2. Hypertension appears to be stable. 3. Diastolic dysfunction. Overall, he is improved. I anticipate discharge soon, I think probably tomorrow. He is on amlodipine. I am not entirely sure that may not be contributing somewhat to his lower extremity edema. He is also on 2 different diuretics so we may need to be careful with that. He is on Lasix and chlorthalidone, so we will need to monitor. cc: Angel Guardado MD
[2019-01-13] MEDS: COREG PO SCH (20:49)
[2019-01-14] MEDS: SOLU-MEDROL IV SCH ×2 (01:43→15:56)
[2019-01-14] MEDS: DUONEB (A & A) INH PRN (05:30)
[2019-01-14] MEDS: LOVENOX SUBQ SCH (06:21)
[2019-01-14] MEDS: PRILOSEC PO SCH (06:21)
[2019-01-14] MEDS: HUMULIN R (PARKWAY) SUBQ SCH ×3 (06:49→17:36)
[2019-01-14] MEDS: DUONEB (A & A) INH SCH ×3 (07:25→14:36)
[2019-01-14 07:48] LABS: BASO# 0.01 X1000 (0.0-0.2); BASO% 0.1 % (0.0-0.8); HEMATOCRIT 39.7 % (42.0-52.0); HEMOGLOBIN 13.1 g/dL (14.0-18.0); IMM GRAN# 0.06 X1000 (0.0-0.04); IMM GRAN% 0.3 % (0.0-0.5); LYMPH# 1.23 X1000 (1.2-3.4); LYMPH% 6.9 % (20.5-51.1); MCH 30.8 PG (27-31); MCV 93.2 FL (81-99); MONO# 0.84 X1000 (0.11-0.59); MONO% 4.7 % (1.7-9.3); MPV 10.5 FL (7.4-10.4); NEUT# 15.61 X1000 (1.4-6.5); PLT 300 X1000 (130-400); RBC 4.26 XMIL (4.7-6.1); RDW 12.5 % (11.5-14.5); WBC 17.75 X1000 (4.8-10.8)
[2019-01-14 07:58] LABS: AGAP 11; BUN 22 mg/dL (8-22); CALCIUM 9.3 mg/dL (8.8-10.2); CHLORIDE 95 mmol/L (98-107); COSMO 281; CREATININE 0.8 mg/dL (0.7-1.2); ESTIMATED GFR > 60; GLUCOSE 231 mg/dL (70-104); POTASSIUM 3.6 mmol/L (3.5-5.1); SODIUM 135 mmol/L (136-145); TCO2 29 mmol/L (25-35)
[2019-01-14 08:30] LABS: ANISOCYTOSIS 1+; LYMPHS 14 % (21-51); MONO 1 % (1-9); SEGS 85 % (42-75)
--- NOTE | 2019-01-14 08:31 | Diag Imaging Result Doc PS360 ---
EXAM: CHEST-2 VIEWS HISTORY: hypoxia TECHNIQUE: PA and Lateral chest x-ray COMPARISON: 01/11/2019 and earlier. FINDINGS: The cardiomediastinal silhouette is within normal limits. The pulmonary vasculature is not congested. No infiltrate, effusion, or pneumothorax is appreciated. There is pulmonary emphysema and evidence of prior granulomatous. Prominent density is noted in the right cardiophrenic angle stable dating back to at least 2014. This may represent a combination of fibrosis and pericardial fat pad or cyst. There are old healed bilateral rib fractures. IMPRESSION: Stable chest with pulmonary emphysema and old rib fractures. Stable right cardiophrenic angle density. No acute cardiopulmonary abnormality is identified. Electronically signed by Antonia Menon 01/14/2019 8:29 AM
[2019-01-14] MEDS ORDERED: NORVASC PO SCH (09:00)
[2019-01-14] MEDS ORDERED: HYGROTON PO SCH (09:00)
[2019-01-14] MEDS: COZAAR PO SCH (10:21)
[2019-01-14] MEDS: LASIX PO SCH (10:21)
[2019-01-14] MEDS: DOXYCYCLINE 100 MG in NS 250 ML IV SCH (10:21)
[2019-01-14] MEDS: COREG PO SCH (10:21)
[2019-01-14 14:59] VITALS: BP 110/77
--- NOTE | 2019-01-15 04:36 | DISCHARGE SUMMARY ---
ADMISSION DATE: 01/11/2019 DISCHARGE DATE: 01/14/2019 DISCHARGE DIAGNOSES: 1. Chronic obstructive pulmonary disease exacerbation. 2. Diastolic dysfunction. 3. Hypertension. 4. Diastolic dysfunction. BRIEFLY: This is a 68-year-old male, very pleasant gentleman, who came in with shortness of breath and cough. He was found to have a little bit of heart failure, bronchitis, COPD. Workup, he slowly improved with breathing treatments, antibiotics. He did have a burst in his white count on the 01/13 about 19,000, but that was most consistent with some neutrophilia associated with steroid use. Clinically, he improved and I felt stable for discharge on the 01/14/2019. His chest x-ray was still clear. Afebrile. Saturations were 97% on 2 L, which is his baseline O2 requirement. DISCHARGE MEDICATIONS: Coreg 3.125 b.i.d., Glucophage 500 b.i.d., Norvasc 5, simvastatin 20, Cozaar 25, DuoNeb q.6 hours, chlorthalidone 25, which I am going to stop. He is on Lasix 20, Omnicef 300 b.i.d. for 7 days, and Prilosec. He will also be on a prednisone taper. DISCHARGE CONDITION: Stable. He will return followup worsening shortness of breath or cough. This is a 32 minute discharge. cc: Angel Guardado MD
== END 2019-01-14 18:02 | disposition home or self-care (01) | DRG 191 ==
LOC: P.ED 14:51 → P.MEDSURG 20:32
PROVIDERS: ATTEND Internal Medicine
CPT/HCPCS: 71020; 71046; 80048; 80053; 82550; 82805; 82948; 83036; 83735; 83880; 84484; 85025; 85379; 85610; 93005; 94640; 94761; 96374; 99285; A9270; J0696; J1650; J1815; J2920; J2930; J7050; XXXXX